=== PATIENT | male | born 1965 ===

== ENCOUNTER 2017-02-01 10:03 | Day surgery (SDC) | payer OTHER ==
[2017-01-31 08:41] VITALS: BMI 25.8
[2017-02-01] MEDS ORDERED: ceFAZolin IV 2 gm in Dextrose 50 ML IVPB ONE (12:20)
[2017-02-01] MEDS ORDERED: Bupivacaine HCl 0.25% PF (10 ml) Inj ONE (12:20)
[2017-02-01] MEDS ORDERED: Lidocaine 2% w Epi 1:100,000 Inj IJ ONE (12:22)
[2017-02-01] MEDS ORDERED: Midazolam 2 MG/2 ML VIAL ONE (12:22)
[2017-02-01] MEDS ORDERED: Propofol 10 mg/ml Inj (20 ML) ONE (12:22)
[2017-02-01] MEDS ORDERED: Sodium Chloride 0.9% 0 ML IV ONE (12:22)
[2017-02-01] MEDS ORDERED: Succinylcholine Chloride 20 mg/ml Syr (5 ml) IV ONE (12:23)
[2017-02-01] MEDS ORDERED: Lidocaine 4% (Laryng-O-Jet) Kit MM ONE (12:23)
[2017-02-01] MEDS ORDERED: Lactated Ringer's 1,000 ML IV ONE (12:30)
[2017-02-01] MEDS ORDERED: ePHEDrine 50 mg/ml Inj ONE (12:54)
[2017-02-01] MEDS ORDERED: Oxycodone/Acetaminophen 5/325 mg Tab PO PRN (14:40)
--- NOTE | 2017-02-01 14:40 | PCM.SURG1 ---
Surgeon's Initial Post Op Note - Surgeon's Notes Surgeon: Dr. Montero Camp Program Director: Dr. Odell Type of Anesthesia: General Endo, Local Pre-Operative Diagnosis: multiple back lesions Operative Findings: see operative report Post-Operative Diagnosis: back sebaceous cysts x 3 Operation Performed: excision of back sebaceous cyst x3 Specimen/Specimens Removed: sebaceous cysts x3 Estimated Blood Loss: EBL {In ML}: 30 Blood Products Given: N/A Drains Used: No Drains Post-Op Condition: Good Date of Surgery/Procedure: 02/01/17 Time of Surgery/Procedure: 14:40
[2017-02-01] MEDS ORDERED: Lactated Ringer's 1,000 ML IV SCH (14:45)
--- NOTE | 2017-02-01 15:22 | OP ---
PROCEDURE DATE: 02/01/2017 PREOPERATIVE DIAGNOSIS: Multiple lipoma of upper, mid and lower back. POSTOPERATIVE DIAGNOSIS: Multiple sebaceous cysts of the upper, mid and lower back. PROCEDURE DONE: 1. Excision of sebaceous cyst of upper back, 6 x 6 cm in size. 2. Excision of sebaceous cyst of the lower back, 4 x 4 cm size. 3. Excision of sebaceous cyst of the mid back, 3 x 4 cm size. 4. Layered closure of upper back wound 6 x 6 cm size. SURGEON: Amilcar Montero MD VIRTUAL ASSISTANT FOR ADVERTISERS: Shanthi Odell, PGY-1 resident. ANESTHESIA: General endotracheal tube anesthesia. ESTIMATED BLOOD LOSS: Around 30 mL. DRAINS: None. PATHOLOGY: The sebaceous cyst of upper back, sebaceous cyst to the lower and mid back was sent separately. COMPLICATIONS: None. INTRAOPERATIVE FINDINGS: The patient had approximately 6 cm x 6 cm sebaceous cyst of the upper back as well as a 4 x 4 cm of the lower back and 3 x 4 cm at the mid back. INTRAOPERATIVE STEPS: This 51-year-old male who was diagnosed with multiple lipoma of the upper, mid, and lower back that turned out to be sebaceous cyst after operation and the patient was consented for excision and the patient was brought to the OR, placed supine on the operating table. After induction of the anesthesia, the patient was placed in the left lateral position and left lateral position and the back was prepped and draped in a usual sterile fashion. An elliptical 7 x 2 cm incision was made in the upper back, upper and lower flap was created and the sebaceous cyst appeared to extend into the intramuscular portion as well as up to the spinous process and a complete capture dissection was done and the whole cyst was excised and sent off the table for the pathology. The wound was irrigated. The wound was closed in multiple layers, the flap to the underlying fascia, subcutaneous to the underlying fascia, another layer of subcutaneous. The skin was closed with a 4- 0 Monocryl as well as 3-0 nylon and dry sterile dressing was applied. Now the lower back and mid back sebaceous cyst, an elliptical incision was made. After incising the skin and subcutaneous tissue, the cyst was completely excised from the underlying subcutaneous fat and sent off the table for the pathology. The wound was irrigated and wound was closed in 2 layers, the subcutaneous with a 2- 0 Vicryl, skin with a 4-0 Monocryl as well as with 3-0 nylon interrupted suture. Dry sterile dressing was applied. The patient tolerated the procedure well. Count of instruments and gauze was correct. There was no apparent complication. Amilcar Montero MD cc: [id number] TT: 02/01/2017 15:21:26 damaso CARDENAS
[2017-02-01 15:54] VITALS: RESP 16
[2017-02-01 16:13] VITALS: BP 145/73; PULSE 90; TEMP 97.6; O2SAT 96
== END 2017-02-01 16:10 | disposition home or self-care (01) ==
LOC: C.SDS 10:03
PROVIDERS: ATTEND Surgery Surgical Critical Care
DX: L72.3 Sebaceous cyst (principal); B20 Human immunodeficiency virus [HIV] disease; F17.210 Nicotine dependence, cigarettes, uncomplicated; E78.00 Pure hypercholesterolemia, unspecified
CPT/HCPCS: 11406; 12035; 88305; J0690; J1100; J2001; J2250; J2405; J2704; J3010; J7120